=== PATIENT | female | born 1995 | race African-American/Black ===

== ENCOUNTER 2022-05-26 08:13 | Outpatient (CLI) | payer MEDICAID, SELFPAY ==
[2022-05-26 12:31] LABS: Cholesterol* 150 mg/dL (90-199)
[2022-05-26 12:32] LABS: Glucose* 98 mg/dL (60-115); HDL Cholesterol* 39 mg/dL (>=50); LDL Cholesterol Calculated 96 mg/dL (<100); Triglycerides* 73 mg/dL (40-149)
[2022-05-26 12:35] LABS: HIV 1/2/P24 Combo Screen* Negative (Negative)
== END 2022-05-26 08:14 | disposition home or self-care (01) ==
PROVIDERS: PCP Family Medicine; Visit Provider Family Medicine
DX: Z01.419 Encounter for gynecological examination (general) (routine) without abnormal findings (principal); Z11.1 Encounter for screening for respiratory tuberculosis; Z13.1 Encounter for screening for diabetes mellitus; Z13.6 Encounter for screening for cardiovascular disorders
CPT/HCPCS: 80061; 82947; 86480; 86703

== ENCOUNTER 2024-02-05 10:33 | Emergency (ER) | payer MEDICAID, SELFPAY ==
[2024-02-05 11:32] VITALS: BP 113/71; PULSE 81; RESP 18; TEMP 36.7; O2SAT 99; BMI 35.0
[2024-02-05 12:10] LABS: Strep A DNA Probe* DETECTED (Not Detectd)
[2024-02-05 12:24] LABS: PCR FLU A Negative PCR FLU A (Negative); PCR FLU B Negative PCR FLU B (Negative); PCR RSV Negative PCR RSV (Negative); SARS PCR* Negative SARS-CoV-2 (Negative)
--- NOTE | 2024-02-05 12:41 | ED.GENADULT ---
HPI - General Adult General Chief complaint: Sore Throat Stated complaint: Sore throat, DICKERSON Time Seen by Provider: 02/05/24 12:40 Source: patient Mode of arrival: ambulatory Limitations: no limitations History of Present Illness HPI narrative: 28-year-old female coming in today complaining of a sore throat going on for 3 days. States that she had a fever of above 100 yesterday. No fevers today. It is painful to swallow but she has been eating and drinking normally. She denies any pain in her ears, chest pain. She has a mild cough. She states that she is congested 1st thing in the morning but not so much during the day. No sick contacts that she is aware of. Related Data Previous Rx's Medication Instructions Recorded amoxicillin 500 mg tablet 500 mg PO BID 10 days #20 tabs 02/05/24 Allergies Allergy/AdvReac Type Severity Reaction Status Date / Time No Known Allergies Allergy Verified 02/05/24 11:36 Review of Systems Status of ROS: Reports: 6 or more systems reviewed and unremarkable except as noted in History and below 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 Smoking Status: Never smoker Little interest or pleasure in doing things: not at all Feeling down, depressed, or hopeless: not at all Exam Narrative: Exam Narrative: Well-nourished well-developed patient in no acute distress. Alert and oriented. Answers questions appropriately. Mood and affect are appropriate. Thoughts are goal oriented and rational. No tangential or magical thinking noted. Patient speaks in full sentences without needing to catch her breath. Voice sounds normal, does not sound congested. HEENT: Normocephalic atraumatic. Pupils are equally round reactive to light. Extraocular muscles are intact. Conjunctivae are moist without any icterus noted. Moist mucous membranes. Posterior pharynx shows bilateral tonsillar swelling, erythema and exudates. Neck is soft without any lymphadenopathy or thyromegaly. TMs are clear bilaterally. Cardiovascular: Heart is regular rate and rhythm. Lungs: Clear to auscultation bilaterally. Const: Vital Signs, click to edit/add: Vital Signs - 24 hr 02/05/24 11:32 Temperature 98.0 F Pulse Rate [Pulse Oximeter] 81 Respiratory Rate 18 Blood Pressure [Ri ght Upper Arm] 113/71 Pulse Oximetry 99 Oxygen Delivery Me thod Room Air Course Course ED Course: Triple swab is negative. Group a strep DNA is positive. Vital Signs Vital signs: Initial Vital Signs Temperature 98.0 F 02/05/24 11:32 Temperature Source Temporal Artery Scan 02/05/24 11:32 Pulse Rate 81 02/05/24 11:32 Respiratory Rate 18 02/05/24 11:32 Blood Pressure 113/71 02/05/24 11:32 Blood Pressure Mean 85 02/05/24 11:32 Blood Pressure Position Sitting 02/05/24 11:32 Pulse Oximetry 99 02/05/24 11:32 Oxygen Delivery Method Room Air 02/05/24 11:32 Vital Signs Temperature 98.0 F 02/05/24 11:32 Pulse Rate 81 02/05/24 11:32 Respiratory Rate 18 02/05/24 11:32 Blood Pressure 113/71 02/05/24 11:32 Pulse Oximetry 99 02/05/24 11:32 Oxygen Delivery Method Room Air 02/05/24 11:32 Temperature 98.0 F 02/05/24 11:32 Pulse Rate 81 02/05/24 11:32 Respiratory Rate 18 02/05/24 11:32 Blood Pressure 113/71 02/05/24 11:32 Pulse Oximetry 99 02/05/24 11:32 Oxygen Delivery Method Room Air 02/05/24 11:32 Medical Decision Making MDM Narrative Medical decision making narrative: 28-year-old female with strep pharyngitis. Will treat with amoxicillin. Lab Data Lab results reviewed: Yes I reviewed the patient's lab results Labs: Lab Results 02/05/24 Range/Units 11:40 SARS-CoV-2 (PCR) Negative SARS-CoV-2 (Negative) Influenza Type A (PCR) Negative PCR FLU A (Negative) Influenza Type B (PCR) Negative PCR FLU B (Negative) RSV (PCR) Negative PCR RSV (Negative) Group A Strep DNA DETECTED A (Not Detectd) Discharge Plan Discharge Clinical Impression: Acute streptococcal pharyngitis Patient Disposition: Home, Self-Care Condition: Stable Additional Instructions: Take all antibiotics as prescribed. Okay to take Tylenol or ibuprofen as needed/as directed for discomfort. Prescriptions: New amoxicillin 500 mg tablet 500 mg PO BID 10 Days Qty: 20 0RF Follow Up/Referrals: Chuck Hardy MD [Primary Care Provider] - Stand Alone Forms: [employer] Info Instructions
== END 2024-02-05 13:31 | disposition home or self-care (01) ==
LOC: ED 12:52
PROVIDERS: Emergency Provider Family Medicine; PCP Family Medicine
DX: J02.0 Streptococcal pharyngitis (principal)
CPT/HCPCS: 87631; 87651; 99283

== ENCOUNTER 2024-07-11 10:28 | Outpatient (CLI) | payer MEDICAID, SELFPAY ==
[2024-07-11 13:05] LABS: Chlamydia DNA Amplified* NOT DETECTED (No Detected); GC DNA Amplified* NOT DETECTED (No Detected)
[2024-07-15 07:07] LABS: HPV Source Cervix; HPV, High Risk by TMA Not Detected
== END 2024-07-11 10:29 | disposition home or self-care (01) ==
PROVIDERS: PCP Family Medicine; Visit Provider Physician Assistant
DX: Z01.419 Encounter for gynecological examination (general) (routine) without abnormal findings (principal); Z11.3 Encounter for screening for infections with a predominantly sexual mode of transmission; Z12.4 Encounter for screening for malignant neoplasm of cervix
CPT/HCPCS: 86592; 86703; 86803; 87340; 87491; 87591; 87624; 87625; 88141; 88142

== ENCOUNTER 2025-05-08 11:28 | Outpatient (CLI) | payer BC, SELFPAY ==
--- NOTE | 2025-05-08 11:15 | CRLHL7_ITS ---
For Patients: As a result of the Century Cures Act, medical imaging exams and procedure reports are released immediately into your electronic medical record. You may view this report before your referring provider. If you have questions, please contact your health care provider. OB ULTRASOUND LESS THAN 14 WEEKS, 05/08/2025 CLINICAL HISTORY: Dating. COMPARISON: None. TECHNIQUE: Real time flores scale imaging of the fetus was performed. Transabdominal imaging performed. Grayscale and color Doppler ultrasound of the uterus and ovaries from a transabdominal and transvaginal approach. Transvaginal ultrasound of the pelvis was performed to better evaluate the genitourinary organs such as the ovaries and/or endometrium. FINDINGS: Imaging: TV. LMP: . JAGRUTI by LMP: 12/22/2025. GA: 7 weeks 3 days. CRL: 1.2 cm, 7 weeks 2 days. JAGRUTI 12/23/2025. FHR: 139 bpm. Gest Sac: 2.5 cm, appears WNL. Yolk Sac: 3.2 mm, appears WNL. Right Ov: Not visualized. Left Ov: 5.5 x 2.7 x 2.4 cm. WNL. IMPRESSION: 1. Single living intrauterine measuring 7 weeks 2 days and sonographic due date 12/23/2025. 2. Multiple left ovarian cysts are present measuring up to 3.3 cm. 3. Nonvisualization of the right ovary. 4. Left uterine fibroid is present measuring 3.6 x 3.1 x 3.1 cm. 5. Large right-sided uterine fibroid measures 6.0 x 5.5 x 5.1 cm. Shan Pierre M.D. Diagnostic Radiologist [email or web address] Transcribed: 1:41 pm DW/Dictated by: Shan Pierre MD @ 05/08/2025 12:24:00 PM (Electronically Signed)
== END 2025-05-08 11:29 | disposition home or self-care (01) ==
LOC: US 11:29
PROVIDERS: PCP Family Medicine; Visit Provider Registered Nurse
DX: Z34.91 Encounter for supervision of normal pregnancy, unspecified, first trimester (principal); O34.81 Maternal care for other abnormalities of pelvic organs, first trimester; N83.12 Corpus luteum cyst of left ovary; O34.11 Maternal care for benign tumor of corpus uteri, first trimester; D25.9 Leiomyoma of uterus, unspecified; Z3A.01 Less than 8 weeks gestation of pregnancy
CPT/HCPCS: 76817; 83021; 86703; 86706; 86803; 86850; 86900; 86901; 87086; 87340; 87491; 87591

== ENCOUNTER 2025-05-08 12:35 | Outpatient (CLI) | payer BC, SELFPAY ==
[2025-05-08 23:27] LABS: Chlamydia DNA Amplified* NOT DETECTED (No Detected); GC DNA Amplified* NOT DETECTED (No Detected)
== END 2025-05-08 12:36 | disposition home or self-care (01) ==
PROVIDERS: PCP Family Medicine; Visit Provider Registered Nurse
DX: Z34.81 Encounter for supervision of other normal pregnancy, first trimester (principal)
CPT/HCPCS: 83020; 83021; 85660; 86592; 86703; 86704; 86706; 86762; 86787; 86803; 86850; 86900; 86901; 87086; 87340; 87491; 87591

== ENCOUNTER 2025-07-03 13:14 | Outpatient (CLI) | payer BC, SELFPAY | END 2025-07-03 13:15 | disposition home or self-care (01) | LOC: NFLDREF 13:15 | PROVIDERS: PCP Family Medicine; Visit Provider Advanced Practice Midwife | DX: Z34.82 Encounter for supervision of other normal pregnancy, second trimester (principal) | CPT/HCPCS: 81511 ==

== ENCOUNTER 2025-07-31 09:17 | Outpatient (CLI) | payer BC, SELFPAY ==
--- NOTE | 2025-07-31 09:15 | CRLHL7_ITS ---
For Patients: As a result of the 21st Century Cures Act, medical imaging exams and procedure reports are released immediately into your electronic medical record. You may view this report before your referring provider. If you have questions, please contact your health care provider. OB ULTRASOUND SURVEY LMP: 03/17/2025. JAGRUTI by LMP: 12/22/2025. GA: 19 w, 3 d. INDICATION: Supervision of normal . TECHNIQUE: Real time grayscale imaging of the fetus was performed. Evaluate anatomy. Transabdominal imaging performed. Large lower uterine segment fibroid made exam difficult. position: Vertex. Cervix: Visualized. Technique: Transabdominal. Length of closed cervix: 5.0 cm. Placenta/cord: Posterior. Technique: Transabdominal. Placenta tip to internal OS: 6.3 cm. Umbilical Cord: 3-vessel cord. Placenta insertion: Central. Amniotic Fluid: 7.8 cm SDP (greater than/equal to: 2- less than 8 cm). SURVEY: Observed Structures. Calvarium/Spine: Cerebellum: 2.1 cm, 20 w 6 d. Cisterna Magna: 2.4 mm. Nuchal Fold: 5.3 mm. Lateral Ventricle: 6.8 mm. CSP: Yes. Midline Falx: Yes. Choroid Plexus: Yes. Spine: See impression. Abdomen: Stomach: Yes. Abd Cord Insertion: Yes. Urinary Bladder: Yes. Kidneys: See impression. Diaphragm: Yes. Face: Nose/lips: See impression. Orbital view: Yes. Profile: Yes. Limbs: Upper Extremities: Yes. Lower Extremities: Yes. Hands: Yes. Feet: Yes. Vascular: 4-Chamber Heart: Yes. LVOT: Yes. RVOT: Yes. 3VV: Yes. 3VTV: Yes. BPD: 4.2 cm. 18 w, 6 d, 25%. HC: 16.4 cm. 19 w, 1 d, 29%. AC: 15.5 cm. 20 w, 4 d, 82%. FL: 3.4 cm. 20 w, 4 d, 82%. FL/AC ratio: 21.88%. HC/AC ratio: 1.06. heart rate: 155 bpm. age by this US: 20 w, 0 d. JAGRUTI by this US: 12/18/2025. EFW: 351.68g. Weight: 12 oz. Percentile by JAGRUTI: 93%. IMPRESSION: 1. Posterior fibroid measures 2.1 x 1.3 x 2.1 cm. Anterior fibroid measures 3.6 x 2.0 x 3.5 cm. Lower uterine segment fibroid measures 8.9 x 8.0 x 5.9 cm. 2. Concordance of clinical and sonographic dating. 3. Incomplete visualization of the spine, kidneys, and nose/lips. Remainder of the anatomic survey is normal. Short-term follow-up is recommended. Shan Pierre M.D. Diagnostic Radiologist [email or web address] jj/Dictated by: Shan Pierre MD @ 07/31/2025 10:54:00 AM (Electronically Signed)
== END 2025-07-31 09:18 | disposition home or self-care (01) ==
LOC: US 09:17
PROVIDERS: PCP Family Medicine; Visit Provider Advanced Practice Midwife
DX: O34.12 Maternal care for benign tumor of corpus uteri, second trimester (principal); D25.9 Leiomyoma of uterus, unspecified; O35.AXX0 Maternal care for other (suspected) fetal abnormality and damage, fetal facial anomalies, not applicable or unspecified; O35.EXX0 Maternal care for other (suspected) fetal abnormality and damage, fetal genitourinary anomalies, not applicable or unspecified; Z3A.20 20 weeks gestation of pregnancy
CPT/HCPCS: 76805

== ENCOUNTER 2025-08-03 10:47 | Outpatient (CLI) | payer MEDICAID, SELFPAY ==
[2025-08-03] VITALS (8 sets, daily range): BP systolic 122; BP diastolic 74; PULSE 65–71; RESP 18; TEMP 37.1; O2SAT 98
--- OUTSIDE RECORDS SUMMARY | 2025-08-03 10:36 | XMS_ITS | Clinical Summary ---
Author Organization [employer] [facility] Address [address] [place] [id number] Care Team Providers Care Wire Puller Name Role Phone Shen Moya DO Primary Care Provider [phone] Allergies No known active allergies Medications No known medications Active Problems Problem Noted Date Diagnosed Date Pap smear for cervical cancer screening 08/10/20 Overview (08/10/2023): 07/2023 NIL/ HPV negative Plan: Pap/ HPV due 07/2028 Immunizations Immunization Administration Dates Next Due Influenza Virus, Unspecified 07/20/2018 Influenza, IIV4 08/03/2023,07/18/2019,12/06/2017 Influenza, IIV4 (=>6mos) MDV 07/07/2022,07/10/20 21 Influenza, Injectable, Mdck, Quadrivalent, W/preservative 07/20/2018 MMR 08/26/2021 Tdap 05/26/2022 Tuberculin (PPD) 06/27/2021 Varicella Vaccine 08/26/2021 Family History Medical History Relation Name Comments Parkinsonism Maternal Grandfather Diabetes type II Maternal Grandmother Relation Name Status Comments Maternal Grandfather Maternal Grandmother Social History Tobacco Use Types Packs/Day Years Used Date Smoking Tobacco: Never Smokeless Tobacco: Never Tobacco Cessation:Counseling Given: Yes Alcohol Use Standard Drinks/Week Comments Not Currently 0 (1 standard drink = 0.6 oz pur e alcohol) PHQ-2 Answer Date Recorded PHQ-2 TOTAL SCORE 0 08/03/2023 Social Connections Answer Date Recorded Frequency of Communication with Friends and Fami ly Not on file 2021 Financial Resource Strain Answer Date R ecorded Difficulty of Paying Living Expenses Not on file 2021 Difficulty of Paying Living Expenses Not on file 2021 Comments No Sex and Gender Information Value Date Recorded Sex Assigned at Not on file 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 Gender Identity Not on file Sexual Orientation Not on file Obstetrics History Para Term AB IAB SAB Ectopic Multiple Livin g Live Births 1 1 1 1 1 Date Outcome GA Total Labor Labor/2nd/3rd Weight Sex Type Anes PTL Kami A1 A5 Name Clin 2013 Term C-Sec tion Living Last Filed Vital Signs Vital Sign Reading Time Taken Comments Blood Pressure 100/62 08/03/2023 12:48 PM CDT Pulse 72 08/03/2023 12:48 PM CDT Temperature 37.2 C (98.9 F) 11/26/2021 9:22 AM MECHANICAL ENGINEERING ADVISOR Respiratory Rate 16 06/08/2019 8:06 PM CDT Oxygen Saturation 100% 11/26/2021 9:22 AM MECHANICAL ENGINEERING ADVISOR Inhaled Oxygen Concentration - - Weight 94.8 kg (209 lb) 08/03/2023 12:48 PM CDT Height 164 cm (5' 4.57) 08/03/2023 12:48 PM CDT Body Mass Index 35.25 08/03/2023 12:48 PM CDT Plan of Treatment Health Maintenance Due Date Last Done Comments Hepatitis B series for 19+ (1 of 3 - 19+ 3-dose series) 2012 HPV series for age 9-45 (1 - 3-dose SCDM series) 2020 BMI (ht and wt on same day) for age 18+ 08/03/2024 08/03/2023, 11/26/2021, 08/22/2021 Depression screening for age 12+ 08/03/2024 08/03/2023, 08/22/2021 Influenza Vaccine (#1) 2025 3, 07/07/2022, 07/10/2021, Additional history exists Pap test for age 21-65 08/03/2028 3, 08/03/2023, 10/10/2019, Additional history exists Tetanus booster 05/26/2032 05/26/2022 RSV vaccine for adults or (1 - 1-dose 75+ series) 2068 HIV for age 15-65 Completed 08/03/2023 Hepatitis C screening for age 18-79 Completed 08/03/2023 Pneumococcal series for age 6-49 Aged Out No longer eligible based on patient's age to complete this topic Procedures Procedure Name Priority Date/Time Associated Diagnosis Comments ANTI HIV 1/2 Add On 08/03/2023 1:46 PM CDT Routine screening for STI (sexually transmitted infection) ANTI HCV Add On 08/03/2023 1:46 PM CDT Routine screening for STI (sexually transmitted infection) HPV HIGH RISK Routine 08/03/2023 1:10 PM CDT Cervical cancer screening from Last 3 Months or Most Recently Relevant to Health Maintenance Results * ANTI HCV (08/03/2023 1:46 PM CDT) Pathologist [facility] HEPATITIS C ANTIBODY Non-Reacti ve Non-React lina 08/03/2023 10:18 PM CDT [facility] Comment:Please note, per www .CDC.gov: If a patient is known to be at high risk of HCV infection, or is symptomatic, and the physician's suspicion of HCV infection is high, HCV RNA testing is often employed and is of diagnostic value, even after an initial negative anti-HCV test result. Blood BLOOD SPECIMEN / Unknown Venipuncture / Unknown 08/03/2023 1:46 PM CDT 08/03/2023 1:47 PM CDT us Zak Awad MD SEND OUTS Final Result [facility] [address] [place] [address], * ANTI HIV 1/2 (08/03/2023 1:46 PM CDT) Pathologist [facility] HIV-1/HIV-2 SCREEN Non-Reacti ve Non-Reacti ve 08/03/2023 10:20 PM CDT [facility] Comment:HIV-1 p24 and HIV-1/ HIV-2 Ab Not Detected. Blood BLOOD SPECIMEN / Unknown Venipuncture / Unknown 08/03/2023 1:46 PM CDT 08/03/2023 1:46 PM CDT Zak Awad MD SEND OUTS Final Result Performing Organization Address [facility]/ZIP Co de Phone Number [facility] [address] [address], * HPV HIGH RISK (08/03/2023 1:10 PM CDT) TYPE 16 Negative Negative 08/06/2023 11:58 AM CDT [facility] TYPE 18 Negative Negative 08/06/2023 11:58 AM CDT [facility] OTHER HIGH RISK TYPES Negative Negative 08/06/2023 11:58 AM CDT [facility] Other (Cervical) Non-Blood / Unknown 08/03/2023 1:10 PM CDT 08/04/2023 12:11 PM CDT Narrative [facility] - 08/06/2023 11:58 AM CDT HPV types 16, 18, 31, 33, 35, 39, 45, 51, 52, 56, 58, 59, 66 and 68 DNA were undetectable or below the pre-set threshold. Methodology: Kamari Annabelle 4800 HPV Test Zak Awad MD MICROBIOLOGY Final Result Performing Organization Address City/[facility]/ZIP Co de Phone Number [facility] [address] [place] [address], from Last 3 Months or Most Recently Relevant to Health Maintenance Insurance [facility] Care Teams Wire Puller Relationship Specialty Start Date End Date Shen Moya DO [address] [place] [address] PCP - General Family Practice 08/03/23
--- NOTE | 2025-08-03 10:59 | CRLHL7_ITS ---
For Patients: As a result of the Century Cures Act, medical imaging exams and procedure reports are released immediately into your electronic medical record. You may view this report before your referring provider. If you have questions, please contact your health care provider. INDICATION: Possible leaking of fluid TECHNIQUE: Ultrasound OB pelvis transabdominal. Real-time flores-scale imaging of the fetus was performed with static images saved for review. COMPARISON: Ultrasound 07/31/2025 FINDINGS: Clinical Age: 19 weeks 6 days (JAGRUTI 12/22/2025) Single live intrauterine gestation in breech position. heart rate is 141 beats per minute. Posterior placenta without perigestational bleed. Amniotic fluid index is 26.0 centimeters. Cervical length was not well seen transabdominally. IMPRESSION: 1. Single live intrauterine gestational with a clinical age of 19 weeks 6 days. 2. Amniotic fluid index of 26.0 centimeters. 3. Cervix not visualized transabdominally. Dictated by Irving Millan MD @ 08/03/2025 11:56:42 AM (Electronically Signed)
[2025-08-03 11:24] LABS: Trichomonas No Trichomonas Seen (None Seen)
[2025-08-03 11:50] LABS: Appearance Urine Clear (Clear)
[2025-08-03 12:58] LABS: Amnisure Rom* Negative
[2025-08-03] MEDS: LACTATED RINGERS 1000 ML 1,000 ML IV (13:06)
[2025-08-03 13:52] LABS: Bacterial Vaginosis* Negative (Negative); Candida glab/krus NOT DETECTED (No Detected)
== END 2025-08-03 15:45 | disposition home or self-care (01) ==
LOC: OB OUT 10:48 → OB 10:49
PROVIDERS: PCP Family Medicine; Visit Provider Obstetrics & Gynecology
DX: O47.02 False labor before 37 completed weeks of gestation, second trimester (principal); Z3A.19 19 weeks gestation of pregnancy
CPT/HCPCS: 76815; 81003; 81513; 84112; 87086; 87210; 87481; 87661; G0463; J1885; J7120

== ENCOUNTER 2025-08-05 06:12 | Outpatient (CLI) | payer BC, SELFPAY | END 2025-08-05 06:13 | disposition home or self-care (01) | LOC: AMB 08-07 17:45 | PROVIDERS: PCP Family Medicine; Visit Provider Emergency Medicine | DX: R10.9 Unspecified abdominal pain (principal) | CPT/HCPCS: A0425; A0427 ==

== ENCOUNTER 2025-08-05 06:35 | Observation (INO) | payer BC, SELFPAY ==
[2025-08-05] VITALS (51 sets, daily range): BP systolic 101–123; BP diastolic 62–80; PULSE 58–84; RESP 16; TEMP 36.8; O2SAT 95–100; BMI 36.9
--- OUTSIDE RECORDS SUMMARY | 2025-08-05 06:37 | XMS_ITS | Clinical Summary ---
Author Organization [employer] [facility] [employer] Address [address] [place] [address] Care Team Providers Care Jewelry Sorter Name Role Phone Shen Moya DO Primary Care Provider [phone] Allergies No known active allergies Medications No [...] on file Legal Sex Female 8:09 AM PRINT BUYER Gender Identity Not on file Sexual Orientation [...] 37.2 C (98.9 F) 11/26/2021 9:22 AM PRINT BUYER Respiratory Rate 16 06/08/2019 8:06 PM CDT Oxygen Saturation 100% 11/26/2021 9:22 AM PRINT BUYER Inhaled Oxygen Concentration - - Weight 94.8 [...] ANTI HCV (08/03/2023 1:46 PM CDT) Pathologist [facility] HEPATITIS C ANTIBODY Non-Reacti ve Non-React lina 08/03/2023 10:18 PM CDT [facility] Comment:Please note, per www .CDC.gov: [...] Zak Awad MD SEND OUTS Final Result [facility] [address] [place] [address], * ANTI HIV 1/2 (08/03/2023 1:46 PM CDT) Pathologist [facility] HIV-1/HIV-2 SCREEN Non-Reacti ve Non-Reacti ve 08/03/2023 10:20 PM CDT [facility] Comment:HIV-1 p24 and HIV-1/ HIV-2 Ab Not Detected. Blood BLOOD SPECIMEN / Unknown Venipuncture / Unknown 08/03/2023 1:46 PM CDT 08/03/2023 1:46 PM CDT Zak Awad MD SEND OUTS Final Result Performing Organization Address [facility]/ZIP Co de Phone Number [facility] [address] [address], * HPV HIGH RISK (08/03/2023 1:10 PM CDT) TYPE 16 Negative Negative 08/06/2023 11:58 AM CDT [facility] TYPE 18 Negative Negative 08/06/2023 11:58 AM CDT [facility] OTHER HIGH RISK TYPES Negative Negative 08/06/2023 11:58 AM CDT [facility] Other (Cervical) Non-Blood / Unknown 08/03/2023 1:10 PM CDT 08/04/2023 12:11 PM CDT Narrative [facility] - 08/06/2023 11:58 AM CDT HPV types 16, 18, 31, 33, 35, 39, 45, 51, 52, 56, 58, 59, 66 and 68 DNA were undetectable or below the pre-set threshold. Methodology: Kamari Annabelle 4800 HPV Test Zak Awad MD MICROBIOLOGY Final Result Performing Organization Address City/[facility]/ZIP Co de Phone Number [facility] [address] [place] [address], from Last 3 Months or Most Recently Relevant to Health Maintenance Insurance [facility] Care Teams Jewelry Sorter Relationship Specialty Start Date End Date Shen Moya DO [address] [place] [address] PCP - General Family Practice 08/03/23
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
[2025-08-05 07:32] LABS: Appearance Urine Clear (Clear)
[2025-08-05 07:44] LABS: Hematocrit* 36.9 % (33.0-51.0); Hemoglobin* 12.7 gm/dL (12.0-16.0); Immature Granulocytes Abs Auto 0.04 K/uL (0.00-0.30); Immature Granulocytes Pct Auto 0.4 %; Lymphocytes Absolute Auto 1.50 K/uL (0.90-2.90); Mean Corpuscular HGB Conc 34 gm/dL (32-36); Mean Corpuscular Hemoglobin 30 pg (26-34); Mean Corpuscular Volume 86 fL (80-100); RDW Coefficient of Variation % 13.5 % (11.5-15.5); Red Blood Count* 4.28 m/uL (4.00-5.20); Slide Review Reflex No; White Blood Count* 9.32 K/uL (4.50-11.00)
[2025-08-05 07:57] LABS: Albumin* 3.7 g/dL (3.3-5.0); Chloride* 107 mmol/L (96-114)
[2025-08-05 07:58] LABS: Potassium* 3.8 mmol/L (3.6-5.1); Sodium* 134 mmol/L (135-149)
[2025-08-05 08:00] LABS: Alanine Aminotransferase* 20 U/L (4-35); Anion Gap 4 mEq/L (7-15); Aspartate Amino Transferase* 23 U/L (12-35); Blood Urea Nitrogen* 5 mg/dL (5-24); Carbon Dioxide* 23 mmol/L (20-32); Creatinine* 0.5 mg/dL (0.5-1.5); Est. Creatinine Clearance* 170.37; Estimated Glomerular Filt Rate 129 ml/min
[2025-08-05 08:01] LABS: Alkaline Phosphatase* 104 U/L (40-150); Bilirubin Total* 0.3 mg/dL (0.1-1.5); Calcium* 9.3 mg/dL (8.4-10.6); Glucose* 97 mg/dL (60-115); Total Protein* 7.4 g/dL (6.0-8.3)
[2025-08-05] MEDS: ACETAMINOPHEN 500 MG TABLET 1000 MG PO (08:05)
--- NOTE | 2025-08-05 08:24 | CRLHL7_ITS ---
For Patients: As a result of the Century Cures Act, medical imaging exams and procedure reports are released immediately into your electronic medical record. You may view this report before your referring provider. If you have questions, please contact your health care provider. Indication: Right-sided pain. . Technique: Limited sonography of the gravid uterus was performed. This study is limited to only that which is discussed below. Comparison: The most recent study of August 03, 2025 Findings: There is a single live intrauterine that is currently breech. heart rate is 135 beats per minute. The single deepest pocket 7.5 centimeters. Less than a centimeters is considered normal. The placenta is posterior. No evidence for abruption or previa The cervical length is normal at 3.7 centimeters and appears to be closed. Re-demonstration of myomas. A fundal myoma measures 5.0 x 3.9 x 3.3 centimeters and a right-sided myoma measures 7.7 x 7.5 x 6.1 centimeters. Impression: 1. Single live intrauterine gestation that is breech. Heart rate is 135 beats per minute. 2. Top-normal fluid volumes. 3. Posterior placenta. No previa or abruption. 4. Cervical length is normal. Os is closed 5. Redemonstration of known myomas similar to prior exam Dictated by Jose Hodgson MD @ 08/05/2025 9:58:59 AM (Electronically Signed)
--- NOTE | 2025-08-05 08:26 | CRLHL7_ITS ---
For Patients: As a result of the Cures Act, medical imaging exams and procedure reports are released immediately into your electronic medical record. You may view this report before your referring provider. If you have questions, please contact your health care provider. INDICATION: Right upper quadrant pain. TECHNIQUE: Ultrasound abdomen limited. Sonographic images of the right upper quadrant were obtained using flores-scale and color Doppler images. COMPARISON: None. FINDINGS: Gallbladder: No stones or sludge. Normal wall thickness. No pericholecystic fluid. Negative sonographic Curiel`s sign. Common bile duct: 2 mm. IMPRESSION: No evidence of cholelithiasis or acute cholecystitis. Dictated by Hilary Joe MD @ 08/05/2025 9:53:34 AM (Electronically Signed)
--- NOTE | 2025-08-05 12:42 | PM.OBHPAP1 ---
OB - H&P; HPI Antepartum History of Present Illness Chief complaint: abdominal pain Narrative: Romulo Bryant is a 29 year old [id number] woman at 20 weeks, 1 day gestation By LMP consistent with 7 week ultrasound, JAGRUTI 12/22/2025, who presented to the ER today with continuing complaint of abdominal pain. She was last seen for this on 08/03/2025. She was found to have uterine contractions every 5-7 minutes on tocometer at that time. Ultrasound from that day confirmed continuing presence of the large uterine fibroids and also showed breech presentation with SHERWIN 26. On exam, sterile speculum exam showed her cervix to be closed, thick and long. Other testing on the day included negative AmniSure, negative vaginitis panel, and a normal urinalysis. She was initially treated with IV hydration and 1 dose of Toradol. She was discharged to take ibuprofen every 6 hours for 48 hours. She has been using this consistently for the last 3 days. This morning, she called again with increase in pain and was initially evaluated in the ER. She denies any bleeding or loss of fluid. She describes the pain is centered around the lower right side of her abdomen; previously, it was more diffuse. She describes the pain as severe. Specific Issues/Plans G 2 P 1001 : Ed # History of in [place] 11 years ago. Labored for 3 days and then had emergent . Unable to obtain records. Desires vaginal . 07/31: Pt states he has records, he was going to bring in to a future visit. # Uterine fibroids; Largest is in MARJ measuring 8.9x 8.0x 5.9 cm At NOB: Left uterine fibroid is present measuring 3.6 x 3.1 x 3.1 cm. Large right-sided uterine fibroid measures 6.0 x 5.5 x 5.1 cm. Discussed with patient. Will reassess at 20 week FAS: see imaging below # Left ovarian cysts: Multiple left ovarian cysts are present measuring up to 3.3 cm. Discussed with patient. Reviewed torsion precautions. Will reassess at 20 week FAS. Not visualized at 20 weeks scan # BMI 39.2 Growth US at 32 weeks Weekly testing starting at 37 weeks Delivery 39weeks Due to elevated BMI and sociodemographic characteristic (), recommended daily low dose aspirin starting at 12 weeks. # Varicella nonimmune. Rec. PP vaccine. Imagin05/08/2025: 7 weeks, 2 days by CRL, with sonographic JAGRUTI 12/23/2025. JAGRUTI by LMP is 12/22/2025. Dating by LMP was selected. Left uterine fibroid measuring 3.6 x 3.1 x 3.1 cm. Large right uterine fibroid measuring 6 x 5.5 x 5.1 cm. 07/31/2025: anatomy. Posterior fibroid measuring 2.1 cm in greatest dimension. Anterior fibroid measuring 3.6 x 2.0 x 3.5 cm. Lower uterine segment fibroid measuring 8.9 x 8.0 x 5.9 cm. Normal visualized anatomy, though there was incomplete visualization of spine, kidneys, nose and lips. EFW 93%, AC 82%. All other growth parameters within normal ranges. MVP 7.8 cm. 08/03/25: Breech, SHERWIN 26 cm, posterior placenta without visualized perigestational bleed, cervical length not visualized. 08/05/2025: Breech, cervical length 3.7 cm transabdominally and appears closed. Posterior placenta without abruption or previa. MVP 7.5 cm. Leiomyoma again visualized. Additionally, right upper quadrant ultrasound today was normal without evidence of cholelithiasis or acute cholecystitis. Covid:declines Flu: declines TDAP: RSV: Mental Health: Meds Home Medications and Allergies Home Medications ?Medication ?Instructions ?Recorded ?Confirmed ?Type cetirizine 10 mg tablet 10 mg PO BID 05/08/25 07/31/25 History docosahexaenoic acid 200 mg mg PO 05/08/25 07/31/25 History capsule ( DHA) famotidine 20 mg tablet 20 mg PO BID 05/08/25 07/31/25 History aspirin 81 mg tablet 81 mg PO QDAY 07/31/25 07/31/25 History Allergies Allergy/AdvReac Type Severity Reaction Status Date / Time mold Allergy Intermediate Sneezing Verified 08/05/25 06:40 tree Allergy Intermediate Sneezing Uncoded 07/31/25 10:19 OB - H&P: Exam Physical Exam: Vital signs: Temp Pulse Resp BP Pulse Ox O2 Del Method 98.2 F 70 16 112/66 96 Room Air 11/02/25 06:37 08/05/25 11:01 08/05/25 06:37 08/05/25 11:01 08/05/25 12:38 08/05/25 06:37 Narrative: Physical exam: General: In obvious, considerable pain with any movement. Has great difficulty placing her legs in the bed, and pain is exacerbated by sudden movements in the bed. Psych: Alert and oriented x3, flat affect; patient notes that she feels affected by the IV narcotics HEENT: Normocephalic, atraumatic Heart: Regular rate and rhythm, no murmur rub or gallop Lungs: Clear to auscultation bilaterally Abdomen: Uterus is quite tender to palpation, most notable in the lower anterior uterine segment. It is palpable above the umbilicus and generally enlarged by palpation for gestational age, consistent with large fibroids. She also has some pain to palpation in the right lower quadrant. She has little pain to palpation in the epigastrium and essentially none to palpation of the left lower quadrant. Her exam is performed after she has received IV narcotics. Lower extremities: No edema or erythema Pelvic exam: Feel are rate was 146 on Doppler. Tocometer does show apparent uterine irritability. OB - Results Labs Labs: Short CBC 08/05/25 Range/Units 07:35 WBC 9.32 (4.50-11.00) K/uL Hgb 12.7 (12.0-16.0) gm/dL Hct 36.9 (33.0-51.0) % Plt Count 267 (140-440) K/uL BMP 08/05/25 07:35 Sodium 134 L Potassium 3.8 Chloride 107 Carbon Dioxide 23 BUN 5 Creatinine 0.5 Glucose 97 Calcium 9.3 Liver Function 08/05/25 Range/Units 07:35 Total Bilirubin 0.3 (0.1-1.5) mg/dL AST 23 (12-35) U/L ALT 20 (4-35) U/L Alkaline Phosphatase 104 (40-150) U/L Albumin 3.7 (3.3-5.0) g/dL Urine 08/05/25 Range/Units 07:25 Urine Color Yellow (Yellow) Urine Appearance Clear (Clear) Urine pH 5.5 (5.0-8.5) Ur Specific [place] 1.010 (1.000-1.030) Urine Protein Negative (Negative) Urine Glucose (UA) Negative (Negative) OB - A/P Antepartum Assessment and Plan (1) Uterine fibroid: Status: Acute (2) Abdominal pain affecting : Status: Acute Plan Pain is too severe for to avoid hospitalization. It is managed only with narcotics and only 1 patient is able to remain relatively still. Pain is centered over uterus on exam, with some pain over the right lower quadrant. While I favor degeneration of uterine fibroid as the cause of her pain, I now think it prudent to rule out appendicitis and perhaps chorioamnionitis; she has presented twice with pain and pain is accelerating.
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
== END 2025-08-05 14:45 | disposition short-term general hospital (02) ==
LOC: ED 07:04 → OB 12:31
PROVIDERS: Admitting Provider Obstetrics & Gynecology; Emergency Provider Emergency Medicine; PCP Family Medicine; Visit Provider Emergency Medicine
DX: O34.12 Maternal care for benign tumor of corpus uteri, second trimester (principal); D25.9 Leiomyoma of uterus, unspecified; R10.31 Right lower quadrant pain; O32.1XX0 Maternal care for breech presentation, not applicable or unspecified; Z3A.20 20 weeks gestation of pregnancy
CPT/HCPCS: 36415; 76705; 76815; 80053; 81001; 85025; 96374; 96376; 99285; A9270; G0378; J1171

== ENCOUNTER 2025-08-05 14:29 | Outpatient (CLI) | payer BC, SELFPAY | END 2025-08-05 14:30 | disposition home or self-care (01) | LOC: AMB 08-08 13:17 | PROVIDERS: PCP Family Medicine; Visit Provider Student in an Organized Health Care Education/Training Program | DX: O26.892 Other specified pregnancy related conditions, second trimester (principal); R10.9 Unspecified abdominal pain; Z3A.19 19 weeks gestation of pregnancy | CPT/HCPCS: A0425; A0427 ==

== ENCOUNTER 2025-08-27 10:13 | Outpatient (CLI) | payer BC, SELFPAY ==
--- NOTE | 2025-08-27 10:15 | CRLHL7_ITS ---
For Patients: As a result of the Century Cures Act, medical imaging exams and procedure reports are released immediately into your electronic medical record. You may view this report before your referring provider. If you have questions, please contact your health care provider. OBSTETRICAL ULTRASOUND ??? FOLLOW-UP INDICATION: Follow-up anatomy and fibroids. CLINICAL HISTORY: LMP: 03/17/2025 JAGRUTI by LMP: 12/22/2025 Gestational Age: 23 weeks 2 days COMPARISON: 08/05/2025, 08/03/2025, 07/31/2025. TECHNIQUE: Real-time flores-scale transabdominal imaging of the fetus was performed. FINDINGS: Fetus: Single Cervix: Visualized, 4.3 cm positioning: Vertex Amniotic Fluid: SHERWIN: 25.6 cm 8.2 cm SDP Placenta technique: Transabdominal Placenta position: Not provided heart rate: 141 bpm BIOMETRY: BPD: 5.6 cm, 23 weeks 0 days, 36.1% HC: 21.9 cm, 23 weeks 6 days, 59.5% AC: 20.2 cm, 24 weeks 5 days, 84.7% FL: 4.4 cm, 24 weeks 4 days, 76.9% FL/AC Ratio: 21.9% HC/AC ratio: 1.1 EFW: 703.0 grams; 1 lb. 9 oz. age by this ultrasound: 24 weeks 0 days JAGRUTI by this ultrasound: 12/17/2025 Percentile by JAGRUTI: 92.2% IMPRESSION: 1. Sonographic gestational age is 24 weeks 0 days and sonographic due date is 12/17/2025. Good correlation with dates. 2. Estimated weight is 92nd percentile. Abdominal circumference is 85th percentile. 3. Right-sided fibroid measures 9.0 x 6.2 x 8.3 cm, previously measuring 7.7 x 7.5 x 6.1 cm. 4. Fundal fibroid measures 5.0 x 3.4 x 2.8 cm, previously measuring 5.0 x 3.9 x 3.3 cm. 5. Amniotic fluid single deepest pocket 8.2 cm. SHERWIN 25.6 cm. 6. Normal spine, kidneys, nose and lips. JAYDEN SEGUNDO M.D. Diagnostic Radiologist [email or web address] Transcribed: 3:19 p.m. SONY/Shadia by: Jayden Segundo MD @ 08/27/2025 2:08:00 PM (Electronically Signed)
== END 2025-08-27 10:14 | disposition home or self-care (01) ==
LOC: US 10:14
PROVIDERS: PCP Family Medicine; Visit Provider Advanced Practice Midwife
DX: Z36.2 Encounter for other antenatal screening follow-up (principal); O34.12 Maternal care for benign tumor of corpus uteri, second trimester; D25.9 Leiomyoma of uterus, unspecified; Z3A.24 24 weeks gestation of pregnancy
CPT/HCPCS: 76816

== ENCOUNTER 2025-09-10 10:12 | Outpatient (CLI) | payer MEDICAID, SELFPAY ==
--- NOTE | 2025-09-10 10:15 | CRLHL7_ITS ---
For Patients: As a result of the Century Cures Act, medical imaging exams and procedure reports are released immediately into your electronic medical record. You may view this report before your referring provider. If you have questions, please contact your health care provider. OB ULTRASOUND JAGRUTI by LMP: 12/22/2025. GA: 25 w, 2 d. Single. Comparison: 08/27/2025, 08/05/2025, 08/03/2025. INDICATION: Follow-up polyhydramnios and fibroids. TECHNIQUE: Real time grayscale imaging of the fetus was performed. Transabdominal. CERVIX: Not visualized. POSITIONING: Vertex. AMNIOTIC FLUID: 27.4 cm SHERWIN. 9.3 cm. SDP (N: greater than 2 x 1 cm) PLACENTA: Technique: Transabdominal. PLACENTA POSITION: Posterior, right wall. DOPPLER: heart rate: 146 bpm. IMPRESSION: 1. Amniotic fluid single deepest pocket 9.3 cm. SHERWIN 27.4 cm. 2. Midline fibroid measures 5.9 x 2.4 x 4.2 cm, previously measuring 5.0 x 3.4 x 2.8 cm. 3. Right lower uterine fibroid measures 10.7 x 7.8 x 8.1 cm, previously measuring 9.0 x 6.2 x 8.3 cm. Shan Pierre M.D. Diagnostic Radiologist [email or web address] MARGI/ember pa/Dictated by: Shan Pierre MD @ 09/10/2025 11:50:00 AM (Electronically Signed)
== END 2025-09-10 10:13 | disposition home or self-care (01) ==
PROVIDERS: PCP Family Medicine; Visit Provider Obstetrics & Gynecology
DX: O40.2XX0 Polyhydramnios, second trimester, not applicable or unspecified (principal); O34.12 Maternal care for benign tumor of corpus uteri, second trimester; D25.9 Leiomyoma of uterus, unspecified; Z3A.25 25 weeks gestation of pregnancy
CPT/HCPCS: 76815; 76816

== ENCOUNTER 2025-09-17 09:54 | Outpatient (CLI) | payer MEDICAID, SELFPAY ==
[2025-09-17] VITALS (29 sets, daily range): BP systolic 120–129; BP diastolic 57–68; PULSE 23–99; TEMP 36.6; O2SAT 77–100
[2025-09-17] MEDS: LACTATED RINGERS 1000 ML 1,000 ML IV (11:03)
[2025-09-17 11:09] LABS: Appearance Urine Cloudy (Clear)
[2025-09-17 11:12] LABS: Hematocrit* 35.7 % (33.0-51.0); Hemoglobin* 11.9 gm/dL (12.0-16.0); Immature Granulocytes Abs Auto 0.05 K/uL (0.00-0.30); Immature Granulocytes Pct Auto 0.6 %; Mean Corpuscular HGB Conc 33 gm/dL (32-36); Mean Corpuscular Hemoglobin 29 pg (26-34); Mean Corpuscular Volume 88 fL (80-100); RDW Coefficient of Variation % 13.2 % (11.5-15.5); Red Blood Count* 4.08 m/uL (4.00-5.20); White Blood Count* 8.95 K/uL (4.50-11.00)
[2025-09-17 11:15] LABS: Lymphocytes Absolute Auto 1.50 K/uL (0.90-2.90); Slide Review Reflex No
[2025-09-17 11:35] LABS: Trichomonas No Trichomonas Seen (None Seen)
--- NOTE | 2025-09-17 12:12 | PM.OBLDTN ---
OB - Triage/Final Diagnosis Visit Information Time Seen by Provider: 12:05 Date Seen: 09/17/25 Date of evaluation: 09/17/25 Narrative: The patient is a 29 year old 2 para 1 at 26 weeks gestation by ultrasound, who presents with 3 days of increasing abdominal pain. Normal GI function, had milk this morning. Normal BMs, no dysuria. NO leaking/bleeding or increased vaginal discharge. Good movement. Her pain is worse with contractions or her moving. No other illness/ viral or respiratory or infectious symptoms. Previous fibroids known, with increased size of largest in RLG from 9.0x6.2x8.1 cm to 10.7x7.8x8.1cm ultrasound 09/10/25. Polyhydramnios with SHERWIN 27.4, post right placenta. Previously treated [facility] for contracions and pain with Indocin times 48 hours. CBC normal with wbc 8.9, Hgb 11.9, Plts 312. Urine poor specimen with some yeast. Culture and wet prep pending, FFN sent. Physical exam shows: CV: RRR Lungs CTA Abd: soft but positive rebound. Tender lower abdomen RT>LT. No CVAT. ? uterus tender. Vaginal: leukorrhea of . Wet prep and FFN done, NO vaginal irritation, cervix long and closed. Some tenderness on exam lower uterus with vaginal exam. Evaluation Cervical dilation (cm): 0 Cervical effacement (%): 0 Laboratory results: Laboratory Tests 09/17/25 09/17/25 09/17/25 Range/Units Unknown 11:20 11:00 WBC 8.95 (4.50-11.00) K/uL RBC 4.08 (4.00-5.20) m/uL Hgb 11.9 L (12.0-16.0) gm/dL Hct 35.7 (33.0-51.0) % MCV 88 (80-100) fL MCH 29 (26-34) pg MCHC 33 (32-36) gm/dL RDW Coeff of Pilar 13.2 (11.5-15.5) % Plt Count 312 (140-440) K/uL Neut % (Auto) 73.4 H (42.0-72.0) % Lymph % (Auto) 16.3 L (20-44) % [place] % (Auto) 7.4 (0.0-11.0) % Eos % (Auto) 2.1 (0.0-7.0) % Baso % (Auto) 0.2 (0.0-3.0) % Neut # (Auto) 6.60 (1.7-7.0) K/uL Lymph # (Auto) 1.50 (0.90-2.90) K/uL [place] # (Auto) 0.70 (0.00-0.90) K/UL Eos # (Auto) 0.19 (0.00-0.50) K/uL Baso # (Auto) 0.02 (0.00-0.30) K/uL Abs Immat Gran (auto) 0.05 (0.00-0.30) K/uL Imm/Tot Granulo (auto) 0.6 % Urine Color (Yellow) Urine Appearance (Clear) Urine pH (5.0-8.5) Ur Specific [place]ander (1.000-1.030) Urine Protein (Negative) Urine Glucose (UA) (Negative) Urine Ketones (Negative) Urine Blood (Negative) Urine Nitrite (Negative) Urine Bilirubin (Negative) Urine Urobilinogen (0.2-1.0) Ur Leukocyte Esterase (Negative) Urine RBC (0-2) Urine WBC (0-5) Ur Squamous Epith Cells (None-Few) Urine Bacteria (None) Urine Yeast (None) Vaginal Trichomonas No Trichomonas Seen (None Seen) Vaginal Yeast Yeast Seen A (None Seen) Vaginal Clue Cells No Clue Cells Seen (None Seen) Fibronectin Pending 09/17/25 Range/Units 10:30 WBC (4.50-11.00) K/uL RBC (4.00-5.20) m/uL Hgb (12.0-16.0) gm/dL Hct (33.0-51.0) % MCV (80-100) fL MCH (26-34) pg MCHC (32-36) gm/dL RDW Coeff of Pilar (11.5-15.5) % Plt Count (140-440) K/uL Neut % (Auto) (42.0-72.0) % Lymph % (Auto) (20-44) % [place] % (Auto) (0.0-11.0) % Eos % (Auto) (0.0-7.0) % Baso % (Auto) (0.0-3.0) % Neut # (Auto) (1.7-7.0) K/uL Lymph # (Auto) (0.90-2.90) K/uL [place] # (Auto) (0.00-0.90) K/UL Eos # (Auto) (0.00-0.50) K/uL Baso # (Auto) (0.00-0.30) K/uL Abs Immat Gran (auto) (0.00-0.30) K/uL Imm/Tot Granulo (auto) % Urine Color Yellow (Yellow) Urine Appearance Cloudy A (Clear) Urine pH 8.5 (5.0-8.5) Ur Specific [place] 1.020 (1.000-1.030) Urine Protein 2+ A (Negative) Urine Glucose (UA) Negative (Negative) Urine Ketones Negative (Negative) Urine Blood Negative (Negative) Urine Nitrite Negative (Negative) Urine Bilirubin 1+ A (Negative) Urine Urobilinogen 1.0 (0.2-1.0) Ur Leukocyte Esterase Negative (Negative) Urine RBC 2-5 A (0-2) Urine WBC 5-10 A (0-5) Ur Squamous Epith Cells Many A (None-Few) Urine Bacteria Many A (None) Urine Yeast Few A (None) Vaginal Trichomonas (None Seen) Vaginal Yeast (None Seen) Vaginal Clue Cells (None Seen) Fibronectin Vital signs: Vital Signs - 24 hr 09/17/25 10:17 09/17/25 10:17 09/17/25 10:17 Temperature Pulse Rate Blood Pressure 123/57 L Pulse Oximetry 93 95 09/17/25 10:17 09/17/25 10:17 09/17/25 10:22 Temperature 98 F Pulse Rate 98 Blood Pressure Pulse Oximetry 96 09/17/25 10:32 09/17/25 10:37 09/17/25 10:42 Temperature Pulse Rate Blood Pressure Pulse Oximetry 96 97 98 09/17/25 10:47 09/17/25 10:52 09/17/25 10:57 Temperature Pulse Rate Blood Pressure Pulse Oximetry 100 100 100 09/17/25 11:02 09/17/25 11:07 09/17/25 11:12 Temperature Pulse Rate Blood Pressure Pulse Oximetry 100 100 100 09/17/25 11:17 Temperature Pulse Rate Blood Pressure Pulse Oximetry 100 Fetus (Single) Heart Rate Baseline: 150 Take Out Waiter/Waitress Variability: Moderate (6-25) Monitor Accelerations: Non-Uniform Monitor Decelerations: None Station: -4 Final Diagnosis (1) Polyhydramnios: Status: Acute (2) History of section: Status: Acute Problem details: in [place]. Unable to obtain records. (3) Supervision of high-risk : Status: Acute (4) Uterine fibroid: Status: Acute Problem details: Possible degeneration. Total Time Spent Total Time Spent: 1 hour
[2025-09-17 12:16] LABS: Fetal Fibronectin* Negative (Negative)
[2025-09-17] MEDS: INDOMETHACIN 25 MG CAPSULE 100 MG PR (12:27)
[2025-09-17] MEDS: ASPIRIN 81 MG TAB.CHEW PO (12:37)
[2025-09-17] MEDS: LACTATED RINGERS 1000 ML 1,000 ML 125 ML IV (13:06)
[2025-09-17] MEDS: FLUCONAZOLE 150 MG TABLET PO (13:23)
--- NOTE | 2025-09-17 15:54 | PC.OBNST ---
NST Note NST Note Start: 09/17/25 10:00 Freq: ONCE Status: Active Protocol: Document 09/17/25 15:20 ALZ (Rec: 09/17/25 15:54 ALZ [id number]) NST Note 2 Para (# of births) 1 EDC 12/22/25 Gestational Age In 26 Weeks & 2 Days Weeks & Days Patient Presented Contractions/cramping,Pain with Complaint(s) of If Pain, describe lower abdomen location Reactive No Appropriate for Yes Gestational Age ARCENIO Valdez RN Date 09/17/25 Reactive No Appropriate for Yes Gestational Age ARCENIO Moeller RNC Date 09/17/25 OB NST charge Yes Complete NST Note Yes via Write Note The provider's electronic signature indicates the NST is reactive/appropriate for gestational age. *Note to provider: If an addendum is required, open the patient's chart and click on the note under the Nurse/Allied Health tab.
== END 2025-09-17 15:27 | disposition other institution (70) ==
LOC: OB CLI 09:54 → OB 09:58
PROVIDERS: PCP Family Medicine; Visit Provider Obstetrics & Gynecology
DX: O47.02 False labor before 37 completed weeks of gestation, second trimester (principal); Z3A.26 26 weeks gestation of pregnancy
CPT/HCPCS: 36415; 59025; 81001; 81003; 84112; 85025; 87086; 87210; G0463; A9270; J2270; J7120

== ENCOUNTER 2025-09-17 15:12 | Outpatient (CLI) | payer MEDICAID, SELFPAY | END 2025-09-17 15:13 | disposition home or self-care (01) | LOC: AMB 09-19 11:37 | PROVIDERS: PCP Family Medicine; Visit Provider Emergency Medicine | DX: O60.02 Preterm labor without delivery, second trimester (principal); Z3A.26 26 weeks gestation of pregnancy | CPT/HCPCS: A0425; A0427 ==

== ENCOUNTER 2025-09-20 08:17 | Outpatient (CLI) | payer MEDICAID, SELFPAY | END 2025-09-20 08:18 | disposition home or self-care (01) | LOC: NFLDREF 09-24 13:45 | PROVIDERS: PCP Family Medicine; Referring Provider Family Medicine; Visit Provider Obstetrics & Gynecology | DX: R73.09 Other abnormal glucose (principal) | CPT/HCPCS: 82951; 82952 ==

== ENCOUNTER 2025-09-24 09:27 | Outpatient (CLI) | payer MEDICAID, SELFPAY ==
--- NOTE | 2025-09-24 09:15 | CRLHL7_ITS ---
For Patients: As a result of the Century Cures Act, medical imaging exams and procedure reports are released immediately into your electronic medical record. You may view this report before your referring provider. If you have questions, please contact your health care provider. OB ULTRASOUND LIMITED Clinical History: JAGRUTI by US: 12/22/2025. GA: 27 w, 2 d. Single. Comparison: US 09/20/2025, 08/27/2025, 08/05/2025, 08/03/2025. INDICATION: Recheck fluid, poly. TECHNIQUE: Real time flores scale imaging of the fetus was performed. Transabdominal imaging performed. CERVIX: Not visualized. POSITIONING: Vertex. AMNIOTIC FLUID: 29.3 cm. SHERWIN. 9.0 cm SDP (N: greater than 2 x 1 cm) PLACENTA: Technique: Transabdominal. PLACENTA POSITION: Posterior, right wall. DOPPLER: heart rate: 152 bpm. IMPRESSION: 1. Amniotic fluid single deepest pocket 9.0 cm. SHERWIN 29.3 cm. 2. Anterior uterine fibroid measures 4.8 x 2.2 x 4.6 cm. Right lower uterine fibroid measures 11.8 x 8.0 x 8.7 cm. Shan Pierre M.D. Diagnostic Radiologist [email or web address] SP/Dictated by: Shan Pierre MD @ 09/24/2025 5:02:00 PM (Electronically Signed)
== END 2025-09-24 09:28 | disposition home or self-care (01) ==
LOC: US 09:27
PROVIDERS: PCP Family Medicine; Visit Provider Obstetrics & Gynecology
DX: O40.3XX0 Polyhydramnios, third trimester, not applicable or unspecified (principal); Z3A.27 27 weeks gestation of pregnancy; D25.0 Submucous leiomyoma of uterus; D25.9 Leiomyoma of uterus, unspecified; Z36.89 Encounter for other specified antenatal screening
CPT/HCPCS: 76815